=== PATIENT | male | born 2000 | race Caucasian/White ===

== ENCOUNTER 2023-10-15 23:11 | Emergency (ER) | payer OTHER, SELFPAY ==
--- NOTE | ~2023-10-15 | XR_ITS ---
EXAMINATION: XR CHEST CLINICAL INFORMATION: Cough. COMPARISON: None available. TECHNIQUE: Frontal view of the chest was obtained. FINDINGS: No significant abnormality is noted involving the heart, lungs, mediastinum, bony thorax or soft tissues. XR/XR chest 1V IMPRESSION: Unremarkable examination.
[2023-10-16 00:06] VITALS: BP 138/73; PULSE 101; RESP 18; TEMP 39.4; O2SAT 96; BMI 25.1
--- NOTE | 2023-10-16 00:21 | MHC.EDTECH ---
Patient brought into triage area,labs,covid,and flu obtained and sent to lab.
[2023-10-16 00:29] LABS: MANUAL DIFF FLAG NO
[2023-10-16 00:31] LABS: Basophils Percent Auto 0.1 % (0-2); Eosinophils Percent Auto 0.1 % (0-4); Hematocrit 40.2 % (42.0-52.0); Hemoglobin 13.6 g/dl (14.0-18.0); Imm Gran Abs Auto 0.02 X10*3/uL (0.00-0.03); Imm Gran Pct Auto 0.2 % (0.0-0.4); Lymphocytes Absolute Auto 0.6 X10*3/uL (1.2-4.9); Lymphocytes Percent Auto 7.1 % (20-40); Mean Corpuscular HGB Conc 33.8 g/dl (31.0-36.0); Mean Corpuscular Hemoglobin 27.6 pg (27.0-33.0); Mean Corpuscular Volume 81.5 fL (80.0-98.0); Mean Platelet Volume 9.6 fL (9.4-12.4); Monocytes Absolute Auto 1.2 X10*3/uL (0.1-1.2); Neutrophils Percent Auto 79.5 % (45-73); Platelet Count 202 X10*3/uL (160-400); Red Blood Count 4.93 X10*6/uL (4.60-5.80); Red Cell Distribution Width 11.7 % (11.0-16.0); White Blood Count 8.8 X10*3/uL (4.8-10.8)
[2023-10-16 00:42] LABS: Anion Gap 14 (12-20); Blood Urea Nitrogen 14 mg/dL (9-16); Calcium 9.1 mg/dL (8.4-10.2); Carbon Dioxide 25 mmol/L (22-29); Chloride 102 mmol/L (96-108); Creatinine Clr Calc Pharmacy 89.9; Estimated Glomerular Filt Rate > 60; Glucose Random 143 mg/dL (60-115); Potassium 3.6 mmol/L (3.3-5.1); Sodium 137 mmol/L (135-145)
[2023-10-16 00:44] LABS: COVID-19 Test Negative (Negative); IDNOW Serial# 152EDE1D
[2023-10-16 00:47] LABS: IDNOW Serial# 08D9AD1C; Influenza A Negative (Negative); Influenza B2 Negative (Negative)
[2023-10-16] MEDS: Ibuprofen 600 MG TABLET PO (01:23)
[2023-10-16 02:14] VITALS: BP 137/64; PULSE 99; RESP 16; TEMP 37.2; O2SAT 98
--- NOTE | 2023-10-16 05:36 | ED.URI ---
HPI - URI/Sore Throat General Chief Complaint: Upper Respiratory Symptoms Stated Complaint: Fever/Bodyaches/Cough Time Seen by Provider: 10/16/23 05:36 Source: patient Mode of arrival: ambulatory Limitations: no limitations History of Present Illness HPI Narrative: 31-year-old male who presents emergency department for evaluation of fever, cough, headaches, body aches x2 days. Patient states he is feeling very fatigued he denied nausea, vomiting or diarrhea. 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 Patient states he took Tylenol prior to coming to the emergency department. 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 He denies tobacco use. He occasionally drinks alcohol. He denies drug use. Social History Social History Advance Directives: No Advance Directives Information Provided: Yes Physical Exam Vital Signs: Vital Signs: Last Vital Signs Temp 98.9 F 10/16/23 02:14 Pulse 99 10/16/23 02:14 Resp 16 10/16/23 02:14 BP 137/64 10/16/23 02:14 Pulse Ox 98 10/16/23 02:14 O2 Del Method Room Air 10/16/23 02:14 BMI result Body Mass Index 25.1 Vital signs were normal Exam: General: Awake, alert in no distress Head: Normocephalic, atraumatic EENT: PERRL, Lids normal, sclera normal, conjunctiva normal, nose normal , ears normal, throat without erythema or exudates Neck: Supple, no adenopathy Lung: breath sounds symmetric, no wheezing, rales or rhonchi Chest: symmetric movement, nontender Heart: regular rate and rhythm, normal S1, S2 no murmurs or rubs Abdomen: soft, non-tender, nondistended, normal bowel sounds Back: no vertebral tenderness, no CVAT Extremities: no deformities, moves all extremities symmetrically Neuro: Awake, alert, oriented, normal speech, cranial nerves intact, moves all extremities symmetrically Psych: Pleasant, cooperative Medications Administered Discontinued Medications Generic Name Dose Route Start Last Admin Trade Name Cl PRN Reason Stop Dose Admin Ibuprofen 600 mg 10/16/23 00:13 10/16/23 01:23 Ibuprofen 600 Mg Tablet PO 10/16/23 00:14 600 mg ONCE ONE Administration Medical Decision Making Medical Decision Making [facility] Narrative: 31-year-old male who presents emergency department for evaluation of fever, cough, headaches, body aches x2 days. Patient states he is feeling very fatigued he denied nausea, vomiting or diarrhea. Vital signs were normal. Physical exam was unremarkable. Differential diagnosis: Includes was not limited to viral syndrome, influenza, COVID-19, RSV, pneumonia, electrolyte abnormalities, anemia Following evaluation was ordered: CBC, BMP, COVID-19, influenza, chest x-ray one view Patient was treated initially with the following: Ibuprofen 600 mg orally 05:42 My independent interpretation patient's laboratory evaluation as follows: COVID-19 and influenza were negative. CBC was normal. Chest x-ray was unremarkable Patient's symptoms are consistent with viral-like syndrome. Patient was prescribed ibuprofen and Tylenol. He was advised to stay on a brat diet He was given a work note and discharged home with verbal and printed instructions Admission/Observation Consideration of admission/observation: Escalation of care including admission/observation considered Lab Data [facility] Lab Attestation statement: I reviewed the patient's lab results. 10/16/23 00:19 10/16/23 00:19 Labs: Lab Results 10/16/23 Range/Units 00:19 WBC 8.8 (4.8-10.8) X10*3/uL RBC 4.93 (4.60-5.80) X10*6/uL Hgb 13.6 L (14.0-18.0) g/dl Hct 40.2 L (42.0-52.0) % MCV 81.5 (80.0-98.0) fL MCH 27.6 (27.0-33.0) pg MCHC 33.8 (31.0-36.0) g/dl RDW 11.7 (11.0-16.0) % Plt Count 202 (160-400) X10*3/uL MPV 9.6 (9.4-12.4) fL Immature Gran % (Auto) 0.2 (0.0-0.4) % Neut % (Auto) 79.5 H (45-73) % Lymph % (Auto) 7.1 L (20-40) % [place] % (Auto) 13.0 H (2-11) % Eos % (Auto) 0.1 (0-4) % Baso % (Auto) 0.1 (0-2) % Lymph # (Auto) 0.6 L (1.2-4.9) X10*3/uL [place] # (Auto) 1.2 (0.1-1.2) X10*3/uL Eos # (Auto) 0.0 (0.0-0.4) X10*3/uL Baso # (Auto) 0.0 (0.0-0.2) X10*3/uL Abs Immat Gran (auto) 0.02 (0.00-0.03) X10*3/uL Absolute Neuts (auto) 7.0 (2.0-8.3) x10*3/uL Absolute Nucleated RBC 0.000 (0.0-0.012) X10*3/uL Nucleated RBC % (auto) 0.0 (0.0-0.2) /100WBC Sodium 137 (135-145) mmol/L Potassium 3.6 (3.3-5.1) mmol/L Chloride 102 (96-108) mmol/L Carbon Dioxide 25 (22-29) mmol/L Anion Gap 14 (12-20) BUN 14 (9-16) mg/dL Creatinine 1.33 (0.5-1.4) mg/dL Estim Creat Clear Calc 89.9 Estimated GFR > 60 Random Glucose 143 H (60-115) mg/dL Calcium 9.1 (8.4-10.2) mg/dL COVID-19 (ANTONIA) Negative (Negative) COVID-19 Clin Com See Note Influenza Type A (ARIANNA) Negative (Negative) Influenza Type B (ARIANNA) Negative (Negative) Influenza A & B Note See Note Independent Interpretation I performed an independent interpretation of an: Plain X-Ray Interpretation: My independent interpretation patient's chest x-ray is as follows: No acute disease Radiology Impression Discussion of test interpretation with radiology: I have reviewed the radiologist's reading. Radiologist Impression: XR chest 1V IMPRESSION: Unremarkable examination. Dictated By: Neal Perry Prescription Management I considered prescription management with: Pain Medication Discharge Plan Discharge Clinical Impression: Viral syndrome Patient Disposition: Home, Self-Care Instructions: Viral Syndrome (ED) Additional Instructions: Your blood work was unremarkable. Your COVID-19, influenza and RSV tests were negative Your symptoms are consistent with a flu-like virus. Take ibuprofen 400 mg pills, 1 pills every 6 hours as needed for pain or fever. Take Tylenol (acetaminophen) 500 mg pills, 2 pills every 6 hours as needed for pain or fever. For the next 24 hours, stay on a ALEXANDER diet (bananas, rice, applesauce, tea and toast). Follow-up with your doctor in 2 days. Please return to the emergency department if your symptoms get worse or if you develop any symptoms that are concerning to you. Please see the work note Prescriptions: New acetaminophen [Tylenol Extra Strength] 500 mg tablet 1,000 mg PO Q6H PRN (Reason: fever or pain) Qty: 20 0RF ibuprofen 400 mg tablet 400 mg PO TID PRN (Reason: fever or pain) Qty: 30 0RF Stand Alone Forms: Work/School Release
[2023-10-16 05:48] VITALS: BP 114/57; PULSE 65; RESP 16; TEMP 36.6; O2SAT 97
== END 2023-10-16 05:52 | disposition home or self-care (01) ==
PROVIDERS: Emergency Provider Emergency Medicine Emergency Medical Services
DX: B34.9 Viral infection, unspecified (principal); R05.9 Cough, unspecified; R51.9 Headache, unspecified; R53.83 Other fatigue; R11.2 Nausea with vomiting, unspecified; R19.7 Diarrhea, unspecified; Z11.52 Encounter for screening for COVID-19
CPT/HCPCS: 71045; 80048; 85025; 87502; 87635; 99283; 99284